=== PATIENT | female | born 1935 | race Caucasian/White ===

== ENCOUNTER 2022-06-16 20:10 | Inpatient (IN) | payer MEDICARE, OTHER, SELFPAY ==
--- NOTE | 2022-06-16 20:59 | CRLHL7_ITS ---
For Patients: As a result of the Century Cures Act, medical imaging exams and procedure reports are released immediately into your electronic medical record. You may view this report before your referring provider. If you have questions, please contact your health care provider. INDICATION: Leg pain and swelling. TECHNIQUE: Ultrasound venous duplex lower left extremity. Compression venous exam was performed using chapa-scale, color Doppler, and spectral Doppler analysis. COMPARISON: None. FINDINGS: Deep veins: Sonographic imaging demonstrates the left common femoral, deep femoral, superficial femoral, popliteal, posterior tibial and the contralateral right common femoral veins to be fully compressible with normal color Doppler blood flow. Superficial veins: Greater saphenous vein is fully compressible. No popliteal cyst. IMPRESSION: Normal left lower extremity venous ultrasound, no sign of deep venous thrombosis. Dictated by Kurt Pearce MD @ 06/16/2022 10:36:13 PM (Electronically Signed)
[2022-06-16 21:02] VITALS: BP 158/67; PULSE 71; RESP 18; TEMP 36.8; O2SAT 95
--- NOTE | 2022-06-16 21:11 | PM.IMHP1 ---
Hospitalist- H&P: HPI History of Present Illness Date Seen: 06/16/22 Chief complaint: Direct Admit Narrative: Pinky Rivas is a 86 year old female transferred to [facility] from [facility] for leg cellulitis. Patient has dementia and is unable to give history. History is obtained from the medical record and her daughter. Three days ago on Monday her daughter 1st noted that her leg was quite red and swollen. The patient told her daughter that she sprained her ankle. Looking at the leg the daughter clearly thought that there was an infection and brought her to the emergency department in [place]. There she was diagnosed with leg cellulitis and started on doxycycline 100 mg b.i.d.. They did radiographs at that time which showed no fracture. Over the subsequent 3 days there has been no improvement and the daughter thinks that the leg is looking worse than it did on Monday. Over those 3 days she reports her mom has been eating and drinking very little. She has been sleeping most of the day. Today she was taken back to the emergency department in [place]. There she was found to also have acute kidney injury. Her baseline creatinine is 1.5 and a creatinine today was 2.1. Her EGFR is 23. Her BUN was 61, her CO2 is 24 chloride 107, sodium 142, potassium 5.0, glucose 170. CBC showed a hemoglobin of 10.7 and a white count of 9.0 and platelet count of 330. She had a CRP of 53.9 and a lactate of 2.4. She received vancomycin 1000 mg IV with the infusion and ending at 4:10 p.m. today. She also received 1 L of normal saline IV. Patient reports no other complaints or concerns today. Her daughter is not aware of any other acute problems except as noted above. Daughter and patient are unaware of the nature of the injury that led to the leg wounds and infection. The daughter notes that the patient has been on a gradual decline in her health over the last year. She has become more sedentary and not eating as well. She seems more isolated. She lives in [facility] living facility in [place] and does not want to moved to a longterm facility. Review of Systems Narrative: Unable to obtain from the patient due to dementia. Patient has long-term fairly severe hammertoe deformities and foot pain which the daughter thinks is contributing to her lack of ambulation. [facility] Medical History (Updated 06/16/22 @ 21:50 by Ramses Rosa MD) Anemia ?D64.9 - Anemia, unspecified (ICD-10) Anxiety ?F41.9 - Anxiety disorder, unspecified (ICD-10) Chronic pain ?G89.29 - Other chronic pain (ICD-10) Dementia ?F03.90 - Unspecified dementia, unspecified severity, without behavioral disturbance, psychotic disturbance, mood disturbance, and anxiety (ICD-10) Depression ?F32.A - Depression, unspecified (ICD-10) Frailty syndrome in geriatric patient ?R54 - Age-related physical debility (ICD-10) Gastroesophageal reflux disease ?K21.9 - Gastro-esophageal reflux disease without esophagitis (ICD-10) Hammer toes of both feet ?M20.41 - Other hammer toe(s) (acquired), right foot (ICD-10) ?M20.42 - Other hammer toe(s) (acquired), left foot (ICD-10) History of amputation of toe ?Z89.429 - Acquired absence of other toe(s), unspecified side (ICD-10) Hyperlipidemia ?E78.5 - Hyperlipidemia, unspecified (ICD-10) Hypertension ?I10 - Essential (primary) hypertension (ICD-10) Osteoporosis ?M81.0 - Age-related osteoporosis without current pathological fracture (ICD-10) Physical deconditioning ?R53.81 - Other malaise (ICD-10) Stage 4 chronic kidney disease ?N18.4 - Chronic kidney disease, stage 4 (severe) (ICD-10) Urine incontinence ?R32 - Unspecified urinary incontinence (ICD-10) Surgical History History of cataract surgery ?Z98.49 - Cataract extraction status, unspecified eye (ICD-10) History of inguinal hernia repair ?Z98.890 - Other specified postprocedural states (ICD-10) ?Z87.19 - Personal history of other diseases of the digestive system (ICD-10) History of vaginal hysterectomy ?Z90.710 - Acquired absence of both cervix and uterus (ICD-10) Hx of hammer toe correction ?Z98.890 - Other specified postprocedural states (ICD-10) ?Z87.39 - Personal history of other diseases of the musculoskeletal system and connective tissue (ICD-10) Social History (Updated 06/16/22 @ 21:43 by Ramses Rosa MD) Narrative: Patient lives in [facility] living facility. Her daughter Columba, , is healthcare power of cake cutter machine. Code status is DNR. She does not smoke. She drinks 1 glass of wine weekly. She walks with a walker but has been very sedentary. Smoking Status: Former smoker What tobacco products do you use: cigarettes Smoking quit date/years: >15 years ago Do you use any of these nicotine containing products: None How often do you have a drink containing alcohol: never AUDIT-C Alcohol total score: 0 Non-prescribed substance use: denies use Caffeine: No service: No Meds Home Medications and Allergies Home Medications Medication Instructions Recorded Confirmed Type alprazolam 0.5 mg tablet 0.5 mg PO BID PRN anxiety 06/16/22 06/16/22 History amlodipine 5 mg tablet 5 mg PO DAILY 06/16/22 06/16/22 History atorvastatin 20 mg tablet 20 mg PO DAILY 06/16/22 06/16/22 History bupropion HCl 300 mg 24 hr tablet, 300 mg PO DAILY 06/16/22 06/16/22 History extended release celecoxib 200 mg capsule 200 mg PO DAILY 06/16/22 06/16/22 History donepezil 10 mg tablet 10 mg PO QPM 06/16/22 06/16/22 History donepezil 5 mg tablet 5 mg PO QPM 06/16/22 06/16/22 History doxycycline monohydrate 100 mg 100 mg PO BID 06/16/22 06/16/22 History capsule duloxetine 60 mg capsule,delayed 60 mg PO QPM 06/16/22 06/16/22 History release hydroxyzine HCl 25 mg tablet 25 mg PO BID 06/16/22 06/16/22 History memantine 5 mg tablet 5 mg PO BID 06/16/22 06/16/22 History montelukast 10 mg tablet 10 mg PO QPM 06/16/22 06/16/22 History multivitamin with folic acid 400 1 tab PO DAILY 06/16/22 06/16/22 History mcg tablet (Tab-A-Tila) naloxone 4 mg/actuation nasal spray 1 spray intranasal Q3M PRN 06/16/22 06/16/22 History oxybutynin chloride 10 mg 10 mg PO QPM 06/16/22 06/16/22 History tablet,extended release 24 hr oxycodone 5 mg tablet 5 mg PO Q4H PRN chronic pain 06/16/22 06/16/22 History pantoprazole 40 mg tablet,delayed 40 mg PO QAM 06/16/22 06/16/22 History release sennosides 8.6 mg tablet (Sheila-azalia) 8.6 mg PO DAILY 06/16/22 06/16/22 History Allergies Allergy/AdvReac Type Severity Reaction Status Date / Time No Known Drug Allergies Allergy Verified 06/16/22 21:43 Exam Narrative: Exam Narrative: She is alert and appears in no distress. She is pleasant and cooperative. She is unable to give significant history about recent events. She is able to describe some symptoms and refer me to her daughter who is healthcare power of cake cutter machine. Head is without trauma. Eyes are normal. Oropharynx is normal. Neck is supple without mass or adenopathy. Respirations are clear to auscultation. Breathing is unlabored. Cardiovascular: S1, S2, regular rate and rhythm. No murmur gallop or rub. Abdomen: Bowel sounds active. Abdomen is soft without tenderness or mass. External genitalia normal. Upper extremities are normal and she moves them well. Right lower extremity with some chronic venous stasis skin changes but no edema. she has good dorsalis pedis pulse. She has hammertoe deformity of all 4 toes on her right foot. She has a callus on the plantar mid MTP of the right foot which is not appear to be infected. Left leg as 3 to 4+ edema. It is diffusely erythematous to the knee and involving the whole dorsum of the foot. There are if 3 lesions from 1-2 cm in diameter on her lateral left leg which are draining serous fluid with some eschar. Foot is warm to touch with good capillary refill. Dorsalis pedis pulses intact. No obvious focal tenderness. Const: Vital Signs, click to edit/add: Vital Signs - 24 hr 06/16/22 21:02 Temperature 98.2 F Pulse Rate [Pulse Oximeter] 71 Respiratory Rate 18 Blood Pressure [Le ft Arm] 158/67 H Pulse Oximetry 95 Oxygen Delivery Me thod Room Air Documenting provider has reviewed patient's vital signs: yes Assessment and Plan Assessment and plan (1) Cellulitis and abscess of leg: Problem comment: Recently treated outpatient with doxycycline but getting worse. Has open draining wound on her lateral leg. Culture and treat for MRSA pending culture results Status: Acute (2) Acute kidney injury: Problem comment: Stop Celebrex , fluid resuscitation, monitoring of electrolytes, renal dosing of medications Status: Acute (3) Physical deconditioning: Problem comment: Progressive deconditioning over the past year with very sedentary lifestyle Status: Acute (4) Frailty syndrome in geriatric patient: Problem comment: Patient is on a number of medications which put her at risk for worsening of frailty and falling including alprazolam, oxycodone, oxybutynin, hydroxyzine. Will be cautious about administering these medications. Status: Acute (5) Dementia: Status: Acute Plan Patient is admitted to the hospital for evaluation and treatment of leg cellulitis and abscess. Will treat for MRSA pending cultures. Obtain ultrasound for DVT. Ongoing evaluation and treatment of acute on chronic kidney injury. Plan of care discussed patient and her daughter. Assess patient's ability to return to assisted living. Total time spent is 80 minutes, 50 minutes in coordination of care and discussing with daughter and other providers ongoing evaluation management of cellulitis and kidney injury
[2022-06-16 21:40] LABS: SARS PCR* Negative SARS-CoV-2 (Negative)
[2022-06-16] MEDS: LACTATED RINGERS 1000 ML 500 ML IV (21:59)
[2022-06-16] MEDS: ENOXAPARIN 30 MG/0.3ML INJ SUBCUT (22:33)
[2022-06-16] MEDS: MELATONIN 3 MG TABLET PO (22:34)
[2022-06-16 23:00] VITALS: BP 136/63; PULSE 67; RESP 18; TEMP 36.6; O2SAT 96
[2022-06-16] MEDS: 0.9 % SODIUM CHLORIDE 250 ml IV (23:07)
[2022-06-16] MEDS: ERTAPENEM 1 GM in 0.9 % SODIUM CHLORIDE Mini-bag 100 ML IVPB (23:07)
--- NOTE | 2022-06-16 23:41 | PC.NURSE ---
Pleasant and cooperative. 3+ -4+ pitting edema to left lower leg, elevated on 2 pillows, pt tolerating well. 3 open wounds to lateral side of left calf, wounds had some eschar and cat hair embedded in the sore, areas cleaned with normal saline. Area of redness is outlined and dated. Wound culture sent to lab. VSS. Afebrile. No c/o pain. Pt has yet to get out of bed, able to move indep in bed. Oncoming shift aware that UA is needed. ?
[2022-06-17] VITALS (7 sets, daily range): BP systolic 119–157; BP diastolic 56–81; PULSE 66–93; RESP 16–18; TEMP 36.8–37.7; O2SAT 93–94
[2022-06-17] MEDS: OXYCODONE 5 MG TABLET 2.5 MG PO ×2 (01:12→11:46)
--- NOTE | 2022-06-17 05:36 | PC.NURSE ---
[id number] Pt slept on and off during night. LLE elevated while in bed, pain 5/10, prn medication administered x1 and pt able to sleep afterwards. Up to BR x1 with SBA. denies N/V, chest pain or SOB. LLE cellulitis outlined, three scabbed areas, all about quarter size, to lateral LLE, open to air with no drainage.
[2022-06-17 06:34] LABS: Lactate* 0.5 mmol/L (0.5-1.9)
[2022-06-17] MEDS: LACTATED RINGERS 1000 ML 1,000 ML 75 ML IV (06:39)
[2022-06-17 06:44] LABS: Basophils Absolute Auto 0.04 K/uL (0.00-0.30); Basophils Percent Auto 0.6 % (0.0-3.0); Eosinophils Absolute Auto 0.18 K/uL (0.00-0.50); Eosinophils Percent Auto 2.8 % (0.0-7.0); Hematocrit 28.4 % (33.0-51.0); Hemoglobin* 9.2 gm/dL (12.0-16.0); Immature Granulocytes Abs Auto 0.03 K/uL (0.00-0.30); Immature Granulocytes Pct Auto 0.5 %; Lymphocytes Absolute Auto 1.32 K/uL (0.90-2.90); Lymphocytes Percent Auto 20.3 % (20-44); Mean Corpuscular HGB Conc 32 gm/dL (32-36); Mean Corpuscular Hemoglobin 30 pg (26-34); Mean Corpuscular Volume 93 fL (80-100); Monocytes Percent Auto 10.8 % (0.0-11.0); Neutrophils Absolute Auto 4.22 K/uL (1.7-7.0); Platelet Count* 288 K/uL (140-440); RDW Coefficient of Variation % 16.6 % (11.5-15.5); Red Blood Count 3.05 m/uL (4.00-5.20); White Blood Count* 6.49 K/uL (4.50-11.00)
[2022-06-17 07:18] LABS: Chloride* 112 mmol/L (96-114); Sodium* 139 mmol/L (135-149)
[2022-06-17 07:21] LABS: Creatinine* 1.5 mg/dL (0.5-1.5); Est. Creatinine Clearance* 23.25; Estimated Glomerular Filt Rate 34 ml/min; Slide Review Reflex No
[2022-06-17 07:22] LABS: Blood Urea Nitrogen* 50 mg/dL (7-30); Carbon Dioxide* 28 mmol/L (20-32); Glucose* 93 mg/dL (60-115); Phosphorus* 3.4 mg/dL (2.5-4.5)
[2022-06-17 07:23] LABS: Magnesium* 1.9 mg/dL (1.5-2.6)
[2022-06-17 07:25] LABS: C Reactive Protein* 3.4 mg/dL (0.5-1.0)
[2022-06-17 08:21] LABS: Appearance Urine Clear (Clear); Bilirubin Urine Negative (Negative); Blood Urine Negative (Negative); Color Urine Yellow (Yellow); Glucose Urine Negative (Negative); Ketones Urine Negative (Negative); Leukocyte Esterase Urine 1+ (Negative); Nitrite Urine Negative (Negative); Protein Urine Trace (Negative); Urobilinogen Urine 0.2 (0.2-1.0)
[2022-06-17] MEDS: AMLODIPINE 5 MG TABLET PO (08:33)
[2022-06-17] MEDS: MULTIVITAMIN/MINERALS 1 TABLET 1 TAB PO (08:33)
[2022-06-17] MEDS: SENNOSIDES 1 TAB TABLET PO (08:33)
[2022-06-17] MEDS: MEMANTINE HCL 10 MG TABLET 5 MG PO ×2 (08:33→20:18)
[2022-06-17] MEDS: buPROPion XL 150 MG TABLET 300 MG PO (08:33)
[2022-06-17] MEDS: OMEPRAZOLE 20 MG CAPSULE DR 40 MG PO (08:33)
[2022-06-17 08:41] LABS: Bacteria Urine Few; RBC Urine 0-2 (0-2); Squamous Epithelial Cell Urine Few (None-Few)
--- NOTE | 2022-06-17 11:17 | P.IMPN_ITS ---
Progress Note: A&P Assessment and plan (1) Cellulitis and abscess of leg: Problem details: - recent failure of outpatient doxycycline, on Vancomycin - wound culture obtained on admission, results pending Status: Acute (2) Acute kidney injury: Problem details: - stopped Celebrex on admission, renally dosing medications - back to outpatient baseline of 1.5 on 06/17 Status: Acute (3) Physical deconditioning: Problem details: - Progressive deconditioning over the past year with very sedentary lifestyle - PT and OT following Status: Acute (4) Frailty syndrome in geriatric patient: Problem details: Patient is on a number of medications which put her at risk for worsening of frailty and falling including alprazolam, oxycodone, oxybutynin, hydroxyzine. Will be cautious about administering these medications. Status: Acute (5) Dementia: Status: Acute Plan - per above - continue IV vancomycin, await culture results - renally dosed Lovenox for prophylaxis - reviewed with kamran Waterman, questions answered Subjective Date Seen: 06/17/22 Interval history: No acute events overnight. Patient continues to have discomfort in her left lower extremity, no other concerns for hospitalist team. Daughter Columba visiting this morning, interested in SNF placement for [place]. Exam Narrative: Exam Narrative: GEN: Alert and pleasant, cooperative HEENT: EOMIs bilaterally, no scleral icterus CV: RRR, No concerning murmurs, rubs, or gallops R: LCTA bilaterally without concerning wheezing, air movement is adequate Ext: Edema over RLE with erythema and findings below Skin: Well-demarcated erythema of right lower extremity, does not extend past outline. Three discrete indurated lesions with drainage and eschar formation noted, mild tenderness to palpation Neuro: No focal deficits Psych: Cognitive impairment is evident, no anxiety or agitation noted Const: Vital Signs, click to edit/add: Vital Signs - 24 hr 06/16/22 21:02 06/16/22 21:02 06/16/22 23:00 Temperature 98.2 F 98 F Pulse Rate [Pulse Oximeter] 71 67 Respiratory Rate 18 18 18 Blood Pressure [Le ft Arm] 158/67 H 136/63 Pulse Oximetry 95 95 96 Oxygen Delivery Me thod Room Air Room Air Room Air 06/17/22 02:50 06/17/22 07:00 06/17/22 07:00 Temperature 98.2 F 98.5 F Pulse Rate [Pulse Oximeter] 66 75 93 Respiratory Rate 16 18 18 Blood Pressure [Le ft Arm] 136/81 157/72 H Pulse Oximetry 94 93 Oxygen Delivery Me thod Room Air Room Air Labs Labs: Laboratory Results - last 24 hr 06/16/22 06/17/22 06/17/22 21:26 05:41 08:00 WBC 6.49 RBC 3.05 L Hgb 9.2 L Hct 28.4 L MCV 93 MCH 30 MCHC 32 RDW Coeff of Kaylynn 16.6 H Plt Count 288 Neut % (Auto) 65.0 Lymph % (Auto) 20.3 [place] % (Auto) 10.8 Eos % (Auto) 2.8 Baso % (Auto) 0.6 Neut # (Auto) 4.22 Lymph # (Auto) 1.32 [place] # (Auto) 0.70 Eos # (Auto) 0.18 Baso # (Auto) 0.04 Sodium 139 Potassium 5.0 Chloride 112 Carbon Dioxide 28 BUN 50 H Creatinine 1.5 Estimated Creat Clear 23.25 Estimated GFR 34 Glucose 93 Lactate 0.5 Calcium 9.0 Phosphorus 3.4 Magnesium 1.9 C-Reactive Protein 3.4 H Urine Color Yellow Urine Appearance Clear Urine pH 6.0 Ur Specific [place] 1.020 Urine Protein Trace A Urine Glucose (UA) Negative Urine Ketones Negative Urine Blood Negative Urine Nitrite Negative Urine Bilirubin Negative Urine Urobilinogen 0.2 Ur Leukocyte Esterase 1+ A Urine RBC 0-2 Urine WBC 2-5 Ur Squamous Epith Cells Few Urine Bacteria Few A SARS-CoV-2 (PCR) Negative SARS-CoV-2
[2022-06-17] MEDS: ACETAMINOPHEN 325 MG TABLET 650 MG PO ×2 (11:45→21:00)
--- NOTE | 2022-06-17 15:47 | PC.SOCIAL ---
Discharge planning: Spoke with pt's dtr and OMAR by phone, Columba [phone]. Dtr shared that pt lives at [facility] assisted living in [place] in an apartment where she only received medication services twice a day and no other assisted services. Dtr states pt has already expressed wanting to be discharged home with home care PT/OT rather than going to a long term for short term rehab. However, dtr has concerns about this as she feels pt will refuse home pt/ot when they come to her apartment and that pt does not typically move much in her apartment. So, dtr would like pt to go to a short term rehab stay near where dtr lives in the [facility]. Dtr requested social insurance adviser see if there is availability at the following nursing homes for short term rehab in case pt needs this and agrees to it at discharge: 1. [facility] - [phone] Left message requesting call back regarding short term rehab bed availability. 2. [facility] - [phone] - Left message requesting call back regarding short term rehab bed availability. 3. [facility] - [phone] Left message requesting call back regarding short term rehab bed availability. 4. [facility]-[phone] Left message requesting call back regarding short term rehab bed availability. Dtr states pt has insurance in addition to Medicare which typically covers all of her medical expenses. cushion worker to follow up as needed.
--- NOTE | 2022-06-17 18:27 | PC.NURSE ---
Nursing Care Hours: [id number] Pt this shift calm and cooperative with cares. SB assist with walker and gait belt to bathroom. Pt feel fatigued today and was looking forward to her nap. HTN in morning, WNL by 1500. Temporal temp reached to 99.8, pt warm to touch and pt c/o feeling feverish. Hospitalist made aware. Redness on L leg has not moved past the line from 4/6. Remains edematous, with three scabs closed and open to air. Kept elevated, except at dinner per pt request. UA sent to lab, results pending. DC IV fluids, SL. Fine crackles in bilat posterior lower lobes. Stable on room air. Eating sufficiently, encouraged to drink more fluids.
[2022-06-17] MEDS: MELATONIN 3 MG TABLET PO (20:17)
[2022-06-17] MEDS: ENOXAPARIN 30 MG/0.3ML INJ SUBCUT (20:17)
[2022-06-17] MEDS: DONEPEZIL 10 MG TABLET PO (20:18)
[2022-06-17] MEDS: DULOXETINE 30 MG CAPSULE DR 60 MG PO (20:18)
[2022-06-17] MEDS: ATORVASTATIN 10 MG TABLET 20 MG PO (20:18)
[2022-06-17] MEDS: MONTELUKAST 10 MG TABLET PO (20:19)
[2022-06-17] MEDS: SODIUM CHLORIDE 0.9 % (FLUSH) 10 ML SYRINGE 5 ML IVF (20:20)
[2022-06-18] VITALS (7 sets, daily range): BP systolic 141–169; BP diastolic 64–82; PULSE 73–85; RESP 18; TEMP 36.6–36.8; O2SAT 90–95
--- NOTE | 2022-06-18 06:58 | PC.NURSE ---
shift note : pt pleasant and cooperative. When asked pt about her pain she said, ?it's not good?, PRN Tylenol given, offered relief. Left leg elevated on 1 pillow with the foot of bed also elevated. 3 sores on lateral calf are dry, minimal drainage noted on bed sheet, new sheet provided. 4+ edema to LLE. SBA with walker. BM x 1. VSS. Afebrile.
[2022-06-18 08:21] LABS: Basophils Absolute Auto 0.03 K/uL (0.00-0.30); Basophils Percent Auto 0.5 % (0.0-3.0); Eosinophils Absolute Auto 0.18 K/uL (0.00-0.50); Eosinophils Percent Auto 2.7 % (0.0-7.0); Hematocrit 29.5 % (33.0-51.0); Hemoglobin* 9.6 gm/dL (12.0-16.0); Immature Granulocytes Abs Auto 0.04 K/uL (0.00-0.30); Immature Granulocytes Pct Auto 0.6 %; Lymphocytes Absolute Auto 1.36 K/uL (0.90-2.90); Lymphocytes Percent Auto 20.6 % (20-44); Mean Corpuscular HGB Conc 33 gm/dL (32-36); Mean Corpuscular Hemoglobin 30 pg (26-34); Mean Corpuscular Volume 93 fL (80-100); Monocytes Percent Auto 11.3 % (0.0-11.0); Neutrophils Absolute Auto 4.25 K/uL (1.7-7.0); Neutrophils Percent Auto 64.3 % (42.0-72.0); Platelet Count* 356 K/uL (140-440); RDW Coefficient of Variation % 16.6 % (11.5-15.5); Red Blood Count 3.18 m/uL (4.00-5.20); White Blood Count* 6.61 K/uL (4.50-11.00)
--- NOTE | 2022-06-18 08:23 | PM.IMPN1 ---
Progress Note: A&P Assessment and plan (1) Cellulitis and abscess of leg: Problem details: - recent failure of outpatient doxycycline, on renally dosed Vancomycin - wound culture obtained on admission, MRSA confirmation pending, appreciate input from pharmacy regarding antibiotic administration - negative DVT on ultrasound obtained on admission Status: Acute (2) Acute kidney injury: Problem details: - stopped Celebrex on admission, renally dosing medications - back to outpatient baseline of 1.5 on 06/17 Status: Acute (3) Physical deconditioning: Problem details: - Progressive deconditioning over the past year with very sedentary lifestyle - PT and OT following, SNF recommended Status: Acute (4) Frailty syndrome in geriatric patient: Problem details: Patient is on a number of medications which put her at risk for worsening of frailty and falling including alprazolam, oxycodone, oxybutynin, hydroxyzine. Will be cautious about administering these medications. Status: Acute (5) Dementia: Status: Acute Plan - per above - daughter Columba updated at bedside, questions answered Subjective Date Seen: 06/18/22 Interval history: No acute events overnight. Patient continues to have discomfort in left lower extremity, afebrile with no other complaints for hospitalist team. She is working with therapies. Preliminary wound culture exhibiting MRSA, confirmation pending. Had one episode of diarrhea this morning. Exam Narrative: Exam Narrative: GEN: Alert and sitting comfortably in bedside chair, nontoxic in appearance HEENT: EOMIs bilaterally, no scleral icterus CV: RRR, No concerning murmurs, rubs, or gallops R: LCTA bilaterally without concerning wheezing, air movement adequate Ext: Persistent edema and confluent erythema of left lower extremity with 3 discrete draining lesions, covered with eschar. Patient also has 2 smaller indurated and fluctuant areas near lateral malleolus without eschar formation or drainage. Skin: No other concerning skin lesions or rashes on exposed skin Neuro: No focal deficits Const: Vital Signs, click to edit/add: Vital Signs - 24 hr 06/17/22 11:00 06/17/22 15:00 06/17/22 15:00 Temperature 99.8 F H 98.6 F Pulse Rate [Pulse Oximeter] 76 76 77 Respiratory Rate 18 18 18 Blood Pressure [Le ft Arm] 119/62 Blood Pressure [Ri ght Arm] 154/59 H Pulse Oximetry 94 93 Oxygen Delivery Me thod Room Air Room Air 06/17/22 19:00 06/17/22 22:25 06/17/22 22:32 Temperature 98.5 F 98.4 F Pulse Rate [Pulse Oximeter] 77 78 Respiratory Rate 18 18 18 Blood Pressure [Le ft Arm] 126/57 L 147/56 H Blood Pressure [Ri ght Arm] Pulse Oximetry 94 94 Oxygen Delivery Me thod Room Air Room Air 06/18/22 02:54 Temperature 97.8 F Pulse Rate [Pulse Oximeter] 73 Respiratory Rate 18 Blood Pressure [Le ft Arm] 151/73 H Blood Pressure [Ri ght Arm] Pulse Oximetry 95 Oxygen Delivery Me thod Room Air Labs Labs: Laboratory Results - last 24 hr 06/17/22 08:00 Urine Color Yellow Urine Appearance Clear Urine pH 6.0 Ur Specific [place] 1.020 Urine Protein Trace A Urine Glucose (UA) Negative Urine Ketones Negative Urine Blood Negative Urine Nitrite Negative Urine Bilirubin Negative Urine Urobilinogen 0.2 Ur Leukocyte Esterase 1+ A Urine RBC 0-2 Urine WBC 2-5 Ur Squamous Epith Cells Few Urine Bacteria Few A
[2022-06-18 08:28] LABS: Chloride* 110 mmol/L (96-114); Potassium* 4.4 mmol/L (3.6-5.1); Slide Review Reflex No; Sodium* 139 mmol/L (135-149)
[2022-06-18 08:31] LABS: Creatinine* 1.4 mg/dL (0.5-1.5); Est. Creatinine Clearance* 24.91; Estimated Glomerular Filt Rate 37 ml/min
[2022-06-18 08:32] LABS: Blood Urea Nitrogen* 42 mg/dL (7-30); Calcium* 8.9 mg/dL (8.4-10.6); Carbon Dioxide* 28 mmol/L (20-32); Glucose* 92 mg/dL (60-115)
[2022-06-18 08:35] LABS: C Reactive Protein* 2.4 mg/dL (0.5-1.0)
[2022-06-18] MEDS: buPROPion XL 150 MG TABLET 300 MG PO (09:01)
[2022-06-18] MEDS: OMEPRAZOLE 20 MG CAPSULE DR 40 MG PO (09:01)
[2022-06-18] MEDS: MULTIVITAMIN/MINERALS 1 TABLET 1 TAB PO (09:01)
[2022-06-18] MEDS: AMLODIPINE 5 MG TABLET PO (09:01)
[2022-06-18] MEDS: SODIUM CHLORIDE 0.9 % (FLUSH) 10 ML SYRINGE 5 ML IVF ×2 (09:02→20:33)
[2022-06-18] MEDS: MEMANTINE HCL 10 MG TABLET 5 MG PO ×2 (09:02→20:32)
[2022-06-18] MEDS: ACETAMINOPHEN 325 MG TABLET 650 MG PO ×2 (10:25→16:00)
[2022-06-18] MEDS: OXYCODONE 5 MG TABLET 2.5 MG PO ×2 (10:25→16:00)
[2022-06-18] MEDS: LACTOBACILLUS ACIDOPHILUS 1 TABLET 1 TAB PO ×2 (17:50→20:35)
--- NOTE | 2022-06-18 18:15 | PC.NURSE ---
Nursing Care Hours: [id number] Pt this shift calm and cooperative with cares. Alert and oriented to person and place. Redness in L leg appears to be fading from yesterday. Proximal and distal scabs on L leg draining serosanguineous fluid, skin around scabs peeling away. Two closed yellow pus filled blisters noted on L lateral heel. All areas covered with Mepilex. Leg elevated on pillow while in chair or bed. Pain rated 7-10/10, treated per eMAR. Appetite low but eating about 50% of meals. Lg loose BM in AM. Unsteady gait using walker and gait belt. Pt occasionally will start to lean to one side or the other, needing race and sports book writer assist to get balanced. Bed and chair alarms on, instructed pt to press call light. Pt non compliant and inpatient, setting off alarms. Fine crackles to L posterior lobe. No cough, stable on RA.
[2022-06-18] MEDS: MELATONIN 3 MG TABLET PO (20:32)
[2022-06-18] MEDS: DULOXETINE 30 MG CAPSULE DR 60 MG PO (20:32)
[2022-06-18] MEDS: DOXYCYCLINE HYCLATE 100 MG CAPSULE PO (20:32)
[2022-06-18] MEDS: MONTELUKAST 10 MG TABLET PO (20:32)
[2022-06-18] MEDS: ATORVASTATIN 10 MG TABLET 20 MG PO (20:32)
[2022-06-18] MEDS: DONEPEZIL 10 MG TABLET PO (20:33)
[2022-06-18] MEDS: ENOXAPARIN 30 MG/0.3ML INJ SUBCUT (20:33)
--- NOTE | 2022-06-18 22:48 | PC.NURSE ---
19-23: pleasant and cooperative. Pt seems more confused today compared to previous nights. Pt stated she seems confused as to what time of day it is and will ask if its AM or PM. Pt asks similar questions, all questions answered appropriately. Mepi to calf has some drainage, is still intact. Redness and swelling improving. LLE elevated. ?
[2022-06-19 03:00] VITALS: BP 137/78; PULSE 78; RESP 18; TEMP 36.6; O2SAT 93
--- NOTE | 2022-06-19 06:06 | PC.NURSE ---
Shift note: Patient's left leg appears swelling and reddened. Feels tender but able to walk with A1, walker and GB with it. Pt had 2 soft stool which she described as diarrhea and comes fast. Self-transferred to BR 1x. No SOB noted. Dressing clean and dry.
[2022-06-19 07:00] VITALS: BP 179/90; PULSE 79; RESP 18; TEMP 36.8; O2SAT 96
[2022-06-19 07:29] LABS: Basophils Absolute Auto 0.03 K/uL (0.00-0.30); Basophils Percent Auto 0.5 % (0.0-3.0); Eosinophils Absolute Auto 0.16 K/uL (0.00-0.50); Eosinophils Percent Auto 2.8 % (0.0-7.0); Hematocrit 29.2 % (33.0-51.0); Hemoglobin* 9.6 gm/dL (12.0-16.0); Immature Granulocytes Abs Auto 0.03 K/uL (0.00-0.30); Immature Granulocytes Pct Auto 0.5 %; Mean Corpuscular HGB Conc 33 gm/dL (32-36); Mean Corpuscular Hemoglobin 30 pg (26-34); Mean Corpuscular Volume 92 fL (80-100); Monocytes Percent Auto 14.7 % (0.0-11.0); Neutrophils Absolute Auto 3.62 K/uL (1.7-7.0); Neutrophils Percent Auto 62.5 % (42.0-72.0); Platelet Count* 354 K/uL (140-440); RDW Coefficient of Variation % 16.7 % (11.5-15.5); Red Blood Count 3.18 m/uL (4.00-5.20); White Blood Count* 5.79 K/uL (4.50-11.00)
[2022-06-19 07:32] LABS: Slide Review Reflex No
[2022-06-19] MEDS: OXYCODONE 5 MG TABLET 2.5 MG PO (07:37)
[2022-06-19] MEDS: ACETAMINOPHEN 325 MG TABLET 650 MG PO (07:38)
[2022-06-19] MEDS: OMEPRAZOLE 20 MG CAPSULE DR 40 MG PO (07:39)
[2022-06-19 07:43] LABS: Chloride* 109 mmol/L (96-114); Potassium* 4.1 mmol/L (3.6-5.1); Sodium* 140 mmol/L (135-149)
[2022-06-19 07:46] LABS: Blood Urea Nitrogen* 32 mg/dL (7-30); Carbon Dioxide* 28 mmol/L (20-32); Creatinine* 1.3 mg/dL (0.5-1.5); Est. Creatinine Clearance* 26.82; Estimated Glomerular Filt Rate 40 ml/min
[2022-06-19 07:47] LABS: Calcium* 8.9 mg/dL (8.4-10.6); Glucose* 94 mg/dL (60-115)
[2022-06-19 07:49] LABS: C Reactive Protein* 1.8 mg/dL (0.5-1.0)
--- NOTE | 2022-06-19 08:52 | P.IMPN_ITS ---
Progress Note: A&P Assessment and plan (1) Cellulitis and abscess of leg: Problem details: - recent failure of outpatient doxycycline, on renally dosed Vancomycin will (06/16), oral doxycycline added 06/18 given sensitivities - wound culture obtained on admission, MRSA confirmation pending - negative DVT on ultrasound obtained on admission - continued improvement of inflammatory markers and white blood count. Patient notes feeling poorly on 06/19, possibly iatrogenic from antibiotics. Will administer IV fluids and reassess Status: Acute (2) Acute kidney injury: Problem details: - stopped Celebrex on admission, renally dosing medications - back to outpatient baseline of 1.5 on 06/17 Status: Acute (3) Physical deconditioning: Problem details: - Progressive deconditioning over the past year with very sedentary lifestyle - PT and OT following, SNF recommended upon discharge Status: Acute (4) Frailty syndrome in geriatric patient: Problem details: Patient is on a number of medications which put her at risk for worsening of frailty and falling including alprazolam, oxycodone, oxybutynin, hydroxyzine. Will be cautious about administering these medications. Status: Acute (5) Dementia: Status: Acute Plan - continue on IV antibiotics, transition to long course of oral doxycycline upon discharge - SNF placement when medically appropriate - renally dosed Lovenox for prophylaxis Subjective Date Seen: 06/19/22 Interval history: No acute events overnight. Jenny notes improvement in left lower extremity pain but feels generalized achiness today. No fevers or other localizing symptoms. She continues to work with therapies, who recommend SNF placement upon discharge. Doxycycline was added to IV vancomycin on 06/18. Exam Narrative: Exam Narrative: GEN: Alert and answering questions appropriately, sitting comfortably in bed HEENT: EOMIs bilaterally, no scleral icterus CV: RRR, No concerning murmurs R: LCTA bilaterally without concerning wheezing, air movement adequate Ext: Edema of left lower extremity, improved from admission. Significant improvement in erythema and warmth of left lower extremity Skin: No other concerning skin lesions or rashes on exposed skin Neuro: No focal deficits or resting tremor Const: Vital Signs, click to edit/add: Vital Signs - 24 hr 06/18/22 11:00 06/18/22 15:00 06/18/22 15:00 Temperature 98.3 F 98.3 F Pulse Rate [Pulse Oximeter] 83 83 84 Respiratory Rate 18 18 18 Blood Pressure [Le ft Arm] Blood Pressure [Ri ght Arm] 169/82 H 147/64 H Pulse Oximetry 94 94 Oxygen Delivery Me thod Room Air Room Air 06/18/22 19:00 06/18/22 23:00 06/18/22 23:00 Temperature 97.8 F 98.2 F Pulse Rate [Pulse Oximeter] 85 84 84 Respiratory Rate 18 18 18 Blood Pressure [Le ft Arm] 141/75 H 162/77 H Blood Pressure [Ri ght Arm] Pulse Oximetry 94 90 Oxygen Delivery Me thod Room Air Room Air 06/19/22 03:00 06/19/22 07:00 Temperature 98 F 98.3 F Pulse Rate [Pulse Oximeter] 78 79 Respiratory Rate 18 18 Blood Pressure [Le ft Arm] 137/78 179/90 H Blood Pressure [Ri ght Arm] Pulse Oximetry 93 96 Oxygen Delivery Me thod Room Air Room Air Labs Labs: Laboratory Results - last 24 hr 06/19/22 05:34 WBC 5.79 RBC 3.18 L Hgb 9.6 L Hct 29.2 L MCV 92 MCH 30 MCHC 33 RDW Coeff of Kaylynn 16.7 H Plt Count 354 Neut % (Auto) 62.5 Lymph % (Auto) 19.0 L [place] % (Auto) 14.7 H Eos % (Auto) 2.8 Baso % (Auto) 0.5 Neut # (Auto) 3.62 Lymph # (Auto) 1.10 [place] # (Auto) 0.90 Eos # (Auto) 0.16 Baso # (Auto) 0.03 Sodium 140 Potassium 4.1 Chloride 109 Carbon Dioxide 28 BUN 32 H Creatinine 1.3 Estimated Creat Clear 26.82 Estimated GFR 40 Glucose 94 Calcium 8.9 C-Reactive Protein 1.8 H
[2022-06-19] MEDS: buPROPion XL 150 MG TABLET 300 MG PO (09:10)
[2022-06-19] MEDS: LACTOBACILLUS ACIDOPHILUS 1 TABLET 1 TAB PO ×2 (09:11→18:10)
[2022-06-19] MEDS: MEMANTINE HCL 10 MG TABLET 5 MG PO ×2 (09:11→20:38)
[2022-06-19] MEDS: AMLODIPINE 5 MG TABLET PO (09:12)
[2022-06-19] MEDS: MULTIVITAMIN/MINERALS 1 TABLET 1 TAB PO (09:13)
[2022-06-19] MEDS: 0.9 % SODIUM CHLORIDE 500 ML 500 ML IV (09:48)
[2022-06-19] MEDS: DOXYCYCLINE HYCLATE 100 MG CAPSULE PO (10:47)
[2022-06-19 11:00] VITALS: BP 128/68; PULSE 72; RESP 18; TEMP 36.8; O2SAT 94
[2022-06-19 15:00] VITALS: BP 142/87; PULSE 80; PULSE 85; RESP 18; TEMP 36.9; O2SAT 94
--- NOTE | 2022-06-19 15:29 | PC.NURSE ---
shift note: pt up/walker. pt ambulating in dixon x1. vss stable. pt feeling sick to stomach this a.m and having 7/10 pain in lt l/e. pt medicated with oxycodone & tylenol with relief. Lt top of foot 3+ edema with decreasing redness to lt beckford from markings. drsg x3 changed to lt l/e. moderate purulent drainage to drsgs. IV dc'd to rt FA. IV replaced x2 to lt u/e. LS dim.
[2022-06-19] MEDS: ALPRAZolam 0.25 MG TABLET 0.5 MG PO (18:09)
[2022-06-19 19:00] VITALS: BP 131/55; PULSE 74; RESP 27; TEMP 37; O2SAT 86
[2022-06-19] MEDS: DONEPEZIL 10 MG TABLET PO (20:38)
[2022-06-19] MEDS: ATORVASTATIN 10 MG TABLET 20 MG PO (20:38)
[2022-06-19] MEDS: MELATONIN 3 MG TABLET PO (20:38)
[2022-06-19] MEDS: DULOXETINE 30 MG CAPSULE DR 60 MG PO (20:38)
[2022-06-19] MEDS: ENOXAPARIN 30 MG/0.3ML INJ SUBCUT (20:39)
[2022-06-19] MEDS: MONTELUKAST 10 MG TABLET PO (20:39)
--- NOTE | 2022-06-19 22:52 | PC.NURSE ---
Nursing Care Hours: [phone] Pt this shift calm and cooperative with cares. Had a visitor until after dinner. Then pt felt anxious rating 8/10 from too many visitors. Xanax given per eMAR. Pt declined shower and requested one for morning. Rating pain at medium. Kept elevated in bed. Bandages CDI, redness continues to recede from outline. Pitting edema 4+ in L leg. VSS. After Xanax, spO2 at 86-88%, 0.5 L O2 given via NC, sats at >94%. When sats at 100%, O2 removed and pt remained at >95%. SL IV.
[2022-06-19 23:30] VITALS: RESP 20
[2022-06-20] VITALS (8 sets, daily range): BP systolic 127–148; BP diastolic 68–103; PULSE 80–85; RESP 18–20; TEMP 36.4–36.8; O2SAT 94–97; BMI 22.9
--- NOTE | 2022-06-20 06:37 | PC.NURSE ---
23-07: pleasant and cooperative. SBA with walker. Pt slept throughout shift. 3 mepi to LLE intact with small amount of drainage. Redness to LLE greatly improved.
[2022-06-20 07:08] LABS: Basophils Absolute Auto 0.03 K/uL (0.00-0.30); Basophils Percent Auto 0.5 % (0.0-3.0); Eosinophils Absolute Auto 0.13 K/uL (0.00-0.50); Eosinophils Percent Auto 2.1 % (0.0-7.0); Hematocrit 27.7 % (33.0-51.0); Hemoglobin* 9.1 gm/dL (12.0-16.0); Immature Granulocytes Abs Auto 0.03 K/uL (0.00-0.30); Immature Granulocytes Pct Auto 0.5 %; Lymphocytes Percent Auto 17.9 % (20-44); Mean Corpuscular HGB Conc 33 gm/dL (32-36); Mean Corpuscular Hemoglobin 30 pg (26-34); Mean Corpuscular Volume 92 fL (80-100); Monocytes Percent Auto 13.6 % (0.0-11.0); Neutrophils Absolute Auto 4.08 K/uL (1.7-7.0); Neutrophils Percent Auto 65.4 % (42.0-72.0); Platelet Count* 324 K/uL (140-440); RDW Coefficient of Variation % 16.7 % (11.5-15.5); White Blood Count* 6.24 K/uL (4.50-11.00)
[2022-06-20 07:16] LABS: Chloride* 112 mmol/L (96-114); Potassium* 4.3 mmol/L (3.6-5.1); Sodium* 139 mmol/L (135-149)
[2022-06-20 07:19] LABS: Creatinine* 1.3 mg/dL (0.5-1.5); Est. Creatinine Clearance* 26.82; Estimated Glomerular Filt Rate 40 ml/min
[2022-06-20 07:20] LABS: Blood Urea Nitrogen* 32 mg/dL (7-30); Calcium* 8.8 mg/dL (8.4-10.6); Carbon Dioxide* 28 mmol/L (20-32); Glucose* 83 mg/dL (60-115); Slide Review Reflex No
[2022-06-20 07:22] LABS: C Reactive Protein* 1.2 mg/dL (0.5-1.0)
[2022-06-20] MEDS: LACTOBACILLUS ACIDOPHILUS 1 TABLET 1 TAB PO ×3 (08:59→18:57)
[2022-06-20] MEDS: OMEPRAZOLE 20 MG CAPSULE DR 40 MG PO (09:00)
[2022-06-20] MEDS: AMLODIPINE 5 MG TABLET PO (09:00)
[2022-06-20] MEDS: buPROPion XL 150 MG TABLET 300 MG PO (09:00)
[2022-06-20] MEDS: MULTIVITAMIN/MINERALS 1 TABLET 1 TAB PO (09:00)
[2022-06-20] MEDS: SENNOSIDES 1 TAB TABLET PO (09:00)
[2022-06-20] MEDS: MEMANTINE HCL 10 MG TABLET 5 MG PO ×2 (09:00→22:15)
[2022-06-20] MEDS: SODIUM CHLORIDE 0.9 % (FLUSH) 10 ML SYRINGE 5 ML IVF (09:01)
--- NOTE | 2022-06-20 10:14 | PC.SOCIAL ---
Diacharge planning: Called back to fdc facilities requested to be contacted by family and where messages were left on 06/17/22 with the listed results: 1. [facility] - [phone] Left message requesting call back regarding short term rehab bed availability. 2. [facility] - [phone] (fax [phone]) -Spoke with outpatient coordinator who stated there is no availability expected but information can be faxed and if they have an unexpected discharge, she will call back. 3. [facility] - [phone] Left message requesting call back regarding short term rehab bed availability. 4. [facility]-[phone]. Spoke with outpatient coordinator, Catherine, who confirmed they have no availability and are not accepting referrals at this time. baby formula worker to follow up as needed.
--- NOTE | 2022-06-20 14:12 | PC.NURSE ---
End of Shift Note: Patient has been very pleasant this shift. Her daughter had written on the wipe off board to have patient shower today. When OT offered to help her in the shower she declined stating she had one last night. According to the notes it does not appear she had a shower. Will attempt tomorrow as OT did help her wash up. She was very funny as she was looking her room service menu and would forgot what she wanted but she realized this as she says I had just picked out something to eat and forgot what she was looking at. She has been up in the chair for meals. Will continue to monitor until next shift.
--- NOTE | 2022-06-20 15:14 | P.IMPN_ITS ---
Progress Note: A&P Assessment and plan (1) Cellulitis and abscess of leg: Problem details: - recent failure of outpatient doxycycline, on renally dosed Vancomycin will (06/16) - MRSA on admission wound culture - negative DVT on ultrasound obtained on admission - continued improvement of inflammatory markers and WBC Status: Acute (2) Acute kidney injury: Problem details: - stopped Celebrex on admission, renally dosing medications - back to outpatient baseline of 1.5 on 06/17 Status: Acute (3) Physical deconditioning: Problem details: - Progressive deconditioning over the past year with very sedentary lifestyle - PT and OT following, SNF recommended upon discharge Status: Acute (4) Frailty syndrome in geriatric patient: Problem details: Patient is on a number of medications which put her at risk for worsening of frailty and falling including alprazolam, oxycodone, oxybutynin, hydroxyzine. Will be cautious about administering these medications. Status: Acute (5) Dementia: Status: Acute Plan - awaiting placement, appreciate input from therapy teams and social work - Lovenox for ppx - daughter Columba updated at bedside, questions answered Subjective Date Seen: 06/20/22 Interval history: No acute events overnight. Jenny had some anxiety after many visitors yesterday. Today, she has no concerns for the hospitalist team. Exam Narrative: Exam Narrative: GEN: Alert and sitting comfortably in bedside chair HEENT: EOMIs bilaterally, no scleral icterus, wearing glasses CV: RRR, No concerning murmurs R: LCTA bilaterally without concerning wheezing, air movement adequate Ext:? Edema and erythema of left lower extremity, both with continued improved from admission.?Oozing lesions covered with Mepilex. Skin: No other concerning skin lesions or rashes on exposed skin Neuro:? No focal deficits or resting tremor Const: Vital Signs, click to edit/add: Vital Signs - 24 hr 06/19/22 19:00 06/19/22 23:30 06/20/22 06:00 Temperature 98.6 F Pulse Rate [Pulse Oximeter] 74 Respiratory Rate 27 H 20 20 Blood Pressure [Ri ght Arm] 131/55 L Pulse Oximetry 86 L Oxygen Delivery Me thod Room Air 06/20/22 07:00 06/20/22 07:00 06/20/22 11:00 Temperature 98.2 F 98.2 F Pulse Rate [Pulse Oximeter] 80 80 80 Respiratory Rate 18 18 20 Blood Pressure [Ri ght Arm] 148/88 H 139/72 Pulse Oximetry 96 97 Oxygen Delivery Me thod Room Air Room Air Labs Labs: Laboratory Results - last 24 hr 06/20/22 05:43 WBC 6.24 RBC 3.00 L Hgb 9.1 L Hct 27.7 L MCV 92 MCH 30 MCHC 33 RDW Coeff of Kaylynn 16.7 H Plt Count 324 Neut % (Auto) 65.4 Lymph % (Auto) 17.9 L [place] % (Auto) 13.6 H Eos % (Auto) 2.1 Baso % (Auto) 0.5 Neut # (Auto) 4.08 Lymph # (Auto) 1.10 [place] # (Auto) 0.80 Eos # (Auto) 0.13 Baso # (Auto) 0.03 Sodium 139 Potassium 4.3 Chloride 112 Carbon Dioxide 28 BUN 32 H Creatinine 1.3 Estimated Creat Clear 26.82 Estimated GFR 40 Glucose 83 Calcium 8.8 C-Reactive Protein 1.2 H
--- NOTE | 2022-06-20 15:16 | PC.SOCIAL ---
Addendum entered by PUJA Khoury 06/20/22 16:04: Pallavi pt's dtr Columba [phone] who is pleased with pt being evaluated for a private room at [facility]. upkeep worker to follow up as needed. Original Note: Discharge plans: Called and updated dtr that none of the facilities in the [facility] area that she had requested have available beds. Dtr requested social service technician try fpc facilities in the [place] area. Called the following facilities with the listed results. As pt has MRSA, she will need a private room in a facility. 1. [facility] - no beds 2. [facility] - no private rooms. 3. [facility] - no private room. 4. [facility] - does have an appropriate room. Can fax for assessment. 5. [facility] - no private room. 6. [facility] - left message requesting bed availability. 7. [facility] - Room with shared bathroom. Can fax for assessment. 8. [facility] - left message requesting bed availability. 9. [facility] - has available bed, Can fax for assessment. Faxed information to [facility] for evaluation for admit. upkeep worker to follow up as needed.
[2022-06-20] MEDS: ACETAMINOPHEN 325 MG TABLET 650 MG PO ×2 (15:39→22:22)
[2022-06-20] MEDS: bisacodyL 10 MG SUPP.RECT PR (16:29)
--- NOTE | 2022-06-20 16:38 | PC.NURSE ---
nurse to nurse report given over the phone to DRAGAN Perez at [facility]
[2022-06-20] MEDS: OXYCODONE 5 MG TABLET PO (21:40)
[2022-06-20] MEDS: ATORVASTATIN 10 MG TABLET 20 MG PO (22:15)
[2022-06-20] MEDS: DULOXETINE 30 MG CAPSULE DR 60 MG PO (22:15)
[2022-06-20] MEDS: MELATONIN 3 MG TABLET PO (22:16)
[2022-06-20] MEDS: ENOXAPARIN 30 MG/0.3ML INJ SUBCUT (22:17)
[2022-06-20] MEDS: MONTELUKAST 10 MG TABLET PO (22:17)
[2022-06-20] MEDS: DONEPEZIL 10 MG TABLET PO (22:17)
[2022-06-20] MEDS: ALPRAZolam 0.25 MG TABLET 0.5 MG PO (22:22)
[2022-06-21 05:56] VITALS: RESP 18
[2022-06-21 06:50] LABS: Basophils Absolute Auto 0.04 K/uL (0.00-0.30); Basophils Percent Auto 0.6 % (0.0-3.0); Eosinophils Absolute Auto 0.15 K/uL (0.00-0.50); Eosinophils Percent Auto 2.3 % (0.0-7.0); Hematocrit 28.5 % (33.0-51.0); Hemoglobin* 9.3 gm/dL (12.0-16.0); Immature Granulocytes Abs Auto 0.04 K/uL (0.00-0.30); Immature Granulocytes Pct Auto 0.6 %; Lymphocytes Absolute Auto 1.42 K/uL (0.90-2.90); Lymphocytes Percent Auto 22.1 % (20-44); Mean Corpuscular HGB Conc 33 gm/dL (32-36); Mean Corpuscular Hemoglobin 30 pg (26-34); Mean Corpuscular Volume 93 fL (80-100); Monocytes Percent Auto 15.6 % (0.0-11.0); Neutrophils Absolute Auto 3.77 K/uL (1.7-7.0); Neutrophils Percent Auto 58.8 % (42.0-72.0); Platelet Count* 359 K/uL (140-440); RDW Coefficient of Variation % 16.6 % (11.5-15.5); Red Blood Count 3.07 m/uL (4.00-5.20); White Blood Count* 6.42 K/uL (4.50-11.00)
--- NOTE | 2022-06-21 06:59 | PC.NURSE ---
23-07: pleasant and cooperative. SBA with walker and gb. Attempted to have a BM, no success.?Slept the majority of the shift. Mepis to LLE intact. 4+ pitting edema to LLE, elevated. Redness to LLE continues to improve and remains within original outline from admin. Pt to d/c at 1000 to [facility].
[2022-06-21 07:01] LABS: Slide Review Reflex No
[2022-06-21 07:13] LABS: Chloride* 110 mmol/L (96-114); Sodium* 139 mmol/L (135-149)
[2022-06-21 07:14] LABS: Potassium* 4.3 mmol/L (3.6-5.1)
[2022-06-21 07:16] LABS: Creatinine* 1.4 mg/dL (0.5-1.5); Est. Creatinine Clearance* 24.45; Estimated Glomerular Filt Rate 36 ml/min
[2022-06-21 07:17] LABS: Blood Urea Nitrogen* 36 mg/dL (7-30); Calcium* 8.7 mg/dL (8.4-10.6); Carbon Dioxide* 27 mmol/L (20-32); Glucose* 85 mg/dL (60-115)
[2022-06-21 08:06] VITALS: BP 151/77; PULSE 74; RESP 16; TEMP 36.7; O2SAT 95
[2022-06-21 08:07] VITALS: PULSE 74; RESP 16
[2022-06-21] MEDS: MEMANTINE HCL 10 MG TABLET 5 MG PO (08:46)
[2022-06-21] MEDS: LACTOBACILLUS ACIDOPHILUS 1 TABLET 1 TAB PO (08:46)
[2022-06-21] MEDS: buPROPion XL 150 MG TABLET 300 MG PO (08:47)
[2022-06-21] MEDS: AMLODIPINE 5 MG TABLET PO (08:47)
[2022-06-21] MEDS: MULTIVITAMIN/MINERALS 1 TABLET 1 TAB PO (08:47)
[2022-06-21] MEDS: OMEPRAZOLE 20 MG CAPSULE DR 40 MG PO (08:47)
--- NOTE | 2022-06-21 09:02 | PM.DS1 ---
DS: Providers Provider Date Seen: 06/21/22 Date of admission: 06/16/22 20:54 Primary care physician: Not a Local Provider Admitting Clinician: Ramses Rosa MD Consults: PT, OT, SW, Nutrition Attending Physician on discharge: Lindsay Loomis MD Date of Discharge: 06/21/22 DS: Diagnosis Discharge Diagnosis (1) Cellulitis and abscess of leg: Status: Acute Problem details: - recent failure of outpatient doxycycline, on renally dosed Vancomycin (06/16), discharge on SS Bactrim - MRSA on admission wound culture - negative DVT on ultrasound obtained on admission (2) Dementia: Status: Acute (3) Frailty syndrome in geriatric patient: Status: Acute Problem details: - medication changes made given fall risk/dementia (stopped oxybutynin, hydroxyzine) (4) Physical deconditioning: Status: Acute Problem details: - Progressive deconditioning over the past year with very sedentary lifestyle - PT and OT following, SNF recommended upon discharge (5) Acute kidney injury: Status: Acute Problem details: - stopped Celebrex on admission, renally dosing medications - back to outpatient baseline of 1.5 on 06/17, discharge creatinine 1.4 DS: Summary Hospital Course Hospital Course: Patient is a very pleasant 87-year-old female with cognitive impairment, direct admitted to hospital from the [facility] ED on 06/16 for left lower extremity cellulitis. During stay, wound culture positive for MRSA. Patient was treated with renally dosed vancomycin with both subjective and objective improvement. She was also noted to have MARIBEL, creatinine in the emergency department at [facility] was 2.1. Patient improved with IV fluid hydration and renally dosed medications; creatinine on discharge 1.3. Patient's cognitive impairment remained stable, she does have intermittent anxiety associated with this and utilizes p.r.n. Xanax, which remained effective during stay. Midge was followed by therapies and SNF stay recommended. She was medically appropriate for discharge to [facility] on 06/21. Daughter Columba updated at bedside. Status at Discharge Overall status at discharge: patient is progressing back to baseline Time Spent with Patient Time attestation: Total time spent providing and/or coordinating discharge services: Time spent: Greater than 30 minutes Specific discharge activities: Medication management, care coordination with multidisciplinary team, updates Exam Narrative: Exam Narrative: GEN: Alert and appropriate, nontoxic HEENT: EOMIs bilaterally, no scleral icterus CV: RRR, No concerning murmurs, rubs, or gallops R: LCTA bilaterally without concerning wheezing, air movement adequate Ext: Left lower extremity edema, significantly improved from admission Skin: Erythema of left lower extremity continues to improve, draining areas of wound not formally examined as it is covered with Mepilex today Neuro: No focal deficits Const: Vital Signs, click to edit/add: Vital Signs - 24 hr 06/20/22 11:00 06/20/22 15:39 06/20/22 15:00 Temperature 98.2 F 98.2 F Pulse Rate [Pulse Oximeter] 80 84 Respiratory Rate 20 18 Blood Pressure [Le ft Arm] Blood Pressure [Ri ght Arm] 139/72 Pulse Oximetry 97 Oxygen Delivery Me thod Room Air 06/20/22 15:00 06/20/22 19:00 06/20/22 23:30 Temperature 98.2 F 97.6 F Pulse Rate [Pulse Oximeter] 84 85 Respiratory Rate 18 18 18 Blood Pressure [Le ft Arm] 133/103 H Blood Pressure [Ri ght Arm] 127/68 Pulse Oximetry 94 95 Oxygen Delivery Me thod Room Air Room Air 06/20/22 23:00 06/21/22 05:56 06/21/22 08:06 Temperature 98.1 F Pulse Rate [Pulse Oximeter] 74 Respiratory Rate 18 18 16 Blood Pressure [Le ft Arm] Blood Pressure [Ri ght Arm] 151/77 H Pulse Oximetry 95 Oxygen Delivery Me thod Room Air 06/21/22 08:07 Temperature Pulse Rate [Pulse Oximeter] 74 Respiratory Rate 16 Blood Pressure [Le ft Arm] Blood Pressure [Ri ght Arm] Pulse Oximetry Oxygen Delivery Me thod DS: Data Data Completed and Pending Labs on day of discharge: Labs from last 24 hours 06/21/22 05:45 WBC 6.42 RBC 3.07 L Hgb 9.3 L Hct 28.5 L MCV 93 MCH 30 MCHC 33 RDW Coeff of Kaylynn 16.6 H Plt Count 359 Neut % (Auto) 58.8 Lymph % (Auto) 22.1 [place] % (Auto) 15.6 H Eos % (Auto) 2.3 Baso % (Auto) 0.6 Neut # (Auto) 3.77 Lymph # (Auto) 1.42 [place] # (Auto) 1.00 H Eos # (Auto) 0.15 Baso # (Auto) 0.04 Sodium 139 Potassium 4.3 Chloride 110 Carbon Dioxide 27 BUN 36 H Creatinine 1.4 Estimated Creat Clear 24.45 Estimated GFR 36 Glucose 85 Calcium 8.7 Discharge Plan Discharge Disposition: Xfer [facility] Date of Admission: 06/16/22 20:54 Attending Provider on Discharge: Lindsay Loomis Primary Care Provider: Kennedy Forbes Condition: Improved Anticipated Discharge Date/Time: 06/21/22 08:50 Discharge Medications: New melatonin 3 mg Tablet 3 mg PO HS Qty: 30 0RF oxycodone 5 mg Tablet 2.5 mg PO Q4H PRN (Reason: Pain) Qty: 30 0RF sulfamethoxazole-trimethoprim [Bactrim] 400-80 mg tablet 1 tab PO BID 9 Days Qty: 18 0RF Rx Instructions: to complete full 14 day course Lactobacillus acidophilus 0.5 mg (100 million cell) Tablet 100 mmu cells PO TIDWM Qty: 30 0RF Rx Instructions: may substitute for any probiotic covered by insurance Continued atorvastatin 20 mg tablet 20 mg PO DAILY donepezil 10 mg tablet 10 mg PO HS amlodipine 5 mg tablet 5 mg PO DAILY alprazolam 0.5 mg tablet 0.5 mg PO BID PRN (Reason: anxiety) montelukast 10 mg tablet 10 mg PO HS bupropion HCl 300 mg tablet extended release 24 hr 300 mg PO DAILY memantine 5 mg tablet 5 mg PO BID duloxetine 60 mg capsule,delayed release(DR/EC) 60 mg PO HS multivitamin with folic acid [Tab-A-Tila] 400 mcg tablet 1 tab PO DAILY sennosides [Sheila-azalia] 8.6 mg tablet 8.6 mg PO Q48H pantoprazole 40 mg tablet,delayed release (DR/EC) 40 mg PO QAM Discontinued celecoxib 200 mg capsule 200 mg PO DAILY hydroxyzine HCl 25 mg tablet 25 mg PO BID naloxone 4 mg/actuation spray,non-aerosol 1 spray INTRANASAL Q3M PRN Patient Comments: INSERT 1 SPRAY INTO ONE NOSTRIL NEEDED FOR REVERSAL, MAY REPEAT DOSE IF NO OR MINIMAL RESPONSE oxybutynin chloride 10 mg tablet extended release 24hr 10 mg PO HS oxycodone 5 mg tablet 5 mg PO Q4H PRN (Reason: chronic pain) doxycycline monohydrate 100 mg capsule 100 mg PO BID Discharge Orders: Discharge Order (Routine); Ordered 06/21/22 Ordered By: Lindsay Loomis Additional Instructions: We have stopped Celebrex (kidney function), hydroxyzine, and Oxybutynin (can increase risk of confusion/falls). For pain, Tylenol as base, and Oxycodone if needed on top of that. New medications: Bactrim (antibiotic for MRSA) - we are giving a lower dose for your kidney function, to complete a full 14 day course Probiotics to help with stomach upset/diarrhea from antibiotics. Melatonin for sleep. Activity Level: Activity as Tolerated Activity Detail: per PT/OT Discharge Diet: Regular and High Protein/High Calorie Follow Up Appointments: [facility] [Outside] (Dr. Forbes) [facility] [Outside] (Discharged to [facility]. BMP in 7-10 days please. Also, please reassess need for further abx after course of Bactrim completed ) Provider,Not a Local [Referring] - Forms: [facility] Info Instructions Wound Care: Change Mepilex on LLE as needed Admit to: SNF Discharge Potential: Fair Length of Stay: 30-90 days Can use facility standing orders?: Yes Code Status: DNR/DNI Rehab Potential: Fair Therapy: Physical Therapy and Occupational Therapy Therapy Orders: Evaluate and Treat Oxygen: No Urinary Catheter: No Next INR: n/a Lab Orders: BMP in 7-10 days Hospice Evaluate and Admit: no Orders are good >30 days: Yes Signature: Lindsay Loomis MD
--- NOTE | 2022-06-21 09:11 | PC.SOCIAL ---
Addendum entered by PUJA Khoury 06/21/22 09:31: CIRO completed and submitted, confirmation #[id number]. Original Note: Discharge plan: PT has been accepted for admit to [facility] today with a van pickling machine operator time of 11:00. Called dtr Columba who is aware and agrees with this plan. Provided Columba with information by phone regarding the Important Message from Medicare. Columba states she is pleased with discharge plan and will pickling machine operator the form when she visits this morning prior to discharge. Copy of important message from Medicare was left in the room for Columba.
[2022-06-21] MEDS: OXYCODONE 5 MG TABLET 2.5 MG PO (10:04)
[2022-06-21] MEDS: ACETAMINOPHEN 325 MG TABLET 650 MG PO (10:05)
--- NOTE | 2022-06-21 11:19 | PC.NURSE ---
Discharge. pt has been very pleasant and cooperative. sadly she does have some dementia. no pain this am and later she had leg pain and got po pain meds. SBA with walker and gb. Mepilex x3to LLE intact. 3+ pitting edema to LLE, elevated. Redness to LLE continues to improve and remains within original outline from admin. SL was d/c intact. nurse to nurse was called. she got a w/c ride. [facility] van was here to get her daughter was also here. all paperwork and belongings sent with
== END 2022-06-21 11:05 | DRG 603 ==
PROVIDERS: Admitting Provider Family Medicine; PCP Family Medicine; Visit Provider Family Medicine
DX: L03.116 Cellulitis of left lower limb (principal); N17.9 Acute kidney failure, unspecified; N18.4 Chronic kidney disease, stage 4 (severe); L02.416 Cutaneous abscess of left lower limb; B95.62 Methicillin resistant Staphylococcus aureus infection as the cause of diseases classified elsewhere; F03.90 Unspecified dementia, unspecified severity, without behavioral disturbance, psychotic disturbance, mood disturbance, and anxiety; D64.9 Anemia, unspecified; F41.9 Anxiety disorder, unspecified; F32.A Depression, unspecified; K21.9 Gastro-esophageal reflux disease without esophagitis; E78.5 Hyperlipidemia, unspecified; I12.9 Hypertensive chronic kidney disease with stage 1 through stage 4 chronic kidney disease, or unspecified chronic kidney disease
CPT/HCPCS: 36415; 80048; 81003; 81015; 83605; 83735; 84100; 85025; 86140; 87070; 87086; 87186; 87493; 87635; 93971; 97110; 97116; 97161; 97165; 97530; 97535; A9153; A9270; J1335; J1650; J3370; J7050; J7120